=== PATIENT | male | born 1985 | race African-American/Black ===

== ENCOUNTER 2019-06-17 11:49 | Emergency (ER) | payer OTHER ==
[~2019-06-17] VITALS: Ht 185.4 cm; Wt 91.0 kg
[2019-06-17 12:02] VITALS: BP 117/77
--- NOTE | 2019-06-17 12:11 | PHYS DOC ---
Past History Past Medical History: No Pertinent History Past Surgical History: No Surgical History Alcohol Use: None Adult General Chief Complaint Chief Complaint: COUGH HPI HPI Patient is a 34-year-old male who presents with a couple day history of cough. Patient states that cough is been productive of some yellow sputum. He denies any fever. He denies any chest pain or shortness of breath. Patient states that he is at the [facility] and just wanted to go buy some cough syrup but he was told that he needed to be checked out first.[] Review of Systems Review of Systems Constitutional: Denies fever or chills [] Respiratory: Positive cough without shortness of breath [] Cardiovascular: No additional information not addressed in HPI [] Integument: Denies rash or skin lesions [] Allergies Allergies Allergies Coded Allergies Type Severity Reaction Last Updated Verified No Known Drug Allergies 06/17/19 No Physical Exam Physical Exam Constitutional: Well developed, well nourished, no acute distress, non-toxic appearance. [] Cardiovascular:Heart rate regular rhythm, no murmur [] Lungs & Thorax: Bilateral breath sounds clear to auscultation [] Skin: Warm, dry, no erythema, no rash. [] Current Patient Data Vital Signs Vital Signs Date Time Temp Pulse Resp B/P (MAP) Pulse Ox O2 Delivery O2 Flow Rate FiO2 06/17/19 12:02 97.7 103 18 117/77 (90) 100 Room Air EKG EKG [] Radiology/Procedures Radiology/Procedures [] Course & Med Decision Making Course & Med Decision Making Pertinent Labs and Imaging studies reviewed. (See chart for details) [] Dragon Disclaimer Dragon Disclaimer This electronic medical record was generated, in whole or in part, using a voice recognition dictation system. Departure Departure: Impression: Primary Impression: Upper respiratory infection Disposition: HOME, SELF-CARE Condition: STABLE Referrals: PCP,NO (PCP) Patient Instructions: Upper Respiratory Infection, Adult Problem Qualifiers Primary Impression: Upper respiratory infection URI type: unspecified URI Qualified Codes: J06.9 - Acute upper respiratory infection, unspecified SHARATH ALEXIS Jr. DO Jun 17, 2019 12:11
[2019-06-17] MEDS ORDERED: GUAI118L3 PO (12:20)
== END 2019-06-17 12:23 | disposition home or self-care (01) ==
LOC: ER 11:49
DX: J06.9 Acute upper respiratory infection, unspecified (principal)
CPT/HCPCS: 99282